=== PATIENT | male | born 1950 | race African-American/Black ===

== ENCOUNTER → 2017-01-07 | Outpatient (CLI) | payer OTHER ==
--- NOTE | 2017-01-07 12:37 | RAD ---
Left knee, 2 views, 01/07/2017: History: Knee pain No acute fracture or dislocation is identified. The knee joint space is well-preserved. A small lucency in the intercondylar region of the distal femur probably represents a degenerative type cyst. No joint effusion is evident. IMPRESSION: No acute left knee abnormality is detected.
== END | disposition home or self-care (01) ==
LOC: DXRAD 11:40
PROVIDERS: ATTEND Nurse Practitioner Family
DX: M25.562 Pain in left knee (principal)
CPT/HCPCS: 73560

== ENCOUNTER 2019-06-20 22:24 | Emergency (ER) | payer OTHER, MEDICARE ==
[~2019-06-20] VITALS: Ht 182.9 cm; Wt 95.7 kg
--- NOTE | 2019-06-20 22:47 | PHYS DOC ---
Past History Past Medical History: A-Fib, Hypertension Adult General Chief Complaint Chief Complaint: DYSPNEA/RESPIRATOY DISTRESS... ".. I ve been short of breath.. the past week or so... I probably pick something up at work as her body there is sick... But I just notice I been kind of wheezy..." HPI HPI Patient is a 68 year old male who presents with above hx and complaints of increased dyspnea. Patient history of hypertension and A. fib. Patient states his dyspnea is not like when he had excessive hypertension or A. fib. Patient does have exposures at work to metal dust. 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 Patient normally follows for Dr. Kidd. And also [facility] cardiology for his past history of hypertension and A. fib. Patient has had requirement of use of albuterol inhaler in the past with bronchitis. Patient does not smoke. No history of DVTs or pulmonary embolisms with him or family members. No recent travel. Post multiple or partners have a viral and respiratory illnesses. Review of Systems Review of Systems Constitutional: Denies fever or chills [] Eyes: Denies change in visual acuity, redness, or eye pain [] HENT: Denies nasal congestion or sore throat [] Respiratory: History of [id number], wheezing and dyspnea] Cardiovascular: No additional information not addressed in HPI [] GI: Denies abdominal pain, nausea, vomiting, bloody stools or diarrhea [] : Denies dysuria or hematuria [] Musculoskeletal: Denies back pain or joint pain [] Integument: Denies rash or skin lesions [] Neurologic: Denies headache, focal weakness or sensory changes [] Endocrine: Denies polyuria or polydipsia [] All other systems were reviewed and found to be within normal limits, except as documented in this note. Family History Family History Noncontributory Current Medications Current Medications See nursing for home medications Allergies Allergies Allergies Coded Allergies Type Severity Reaction Last Updated Verified No Known Drug Allergies 06/20/19 No Physical Exam Physical Exam Constitutional: Well developed, well nourished, no acute distress, non-toxic appearance. [] HENT: Normocephalic, atraumatic, bilateral external ears normal, oropharynx moist, no oral exudates, nose mild turbinate edema and clear rhinorrhea. Eyes: PERRLA, EOMI, conjunctiva normal, no discharge. [] Neck: Normal range of motion, no tenderness, supple, no stridor. [] Cardiovascular:Heart rate regular rhythm, no murmur [] Lungs & Thorax: Bilateral breath sounds with apex with scattered wheezes on auscultation [] Abdomen: Bowel sounds normal, soft, no tenderness, no masses, no pulsatile masses. [] Skin: Warm, dry, no erythema, no rash. [] Back: No tenderness, no CVA tenderness. [] Extremities: No tenderness, no cyanosis, no clubbing, ROM intact, no edema. [No cording noted in legs.] Neurologic: Alert and oriented X 3, normal motor function, normal sensory function, no focal deficits noted. [] Psychologic: Affect normal, judgement normal, mood normal. [] EKG EKG My interpretation EKG shows a sinus rhythm at 77 beats per minute. No findings acute STEMI with contralateral changes.[] Radiology/Procedures Radiology/Procedures [][place] [address] IMAGING REPORT Signed PATIENT: JAILYN VELAZQUEZ DACCOUNT: [id number] : 1950 LOCATION: ER AGE: 68 SEX: M EXAM STATUS: REG ER ORD. PHYSICIAN: PETER HADDAD MD REASON: dyspnea, WHEEZING - X 1 WEEK PROCEDURE: CHEST PA & LATERAL CHEST PA LATERAL History: Dyspnea and wheezing for one week Comparison: 12/09/2011 Portable Chest X-ray Exam. Findings: Frontal and lateral view of chest were obtained. The cardiomediastinal silhouette is normal. Pulmonary vasculature is normal. The lungs are clear. No pleural effusion or pneumothorax is seen. There is no acute bone abnormality. IMPRESSION: No acute cardiopulmonary process. Electronically signed by: Jeff Baumann MD (06/20/2019 11:21 PM) [facility] DICTATED AND SIGNED BY: JEFF BAUMANN MD DATE: 06/20/19 0385 CC: PETER HADDAD MD; MONUIKA KIDD ~ Course & Med Decision Making Course & Med Decision Making Pertinent Labs and Imaging studies reviewed. (See chart for details) Patient reports relief of symptoms with albuterol treatments. Patient requesting discharge. Patient to take prednisone 50 mg a day. Patient to use MDI 2 puffs 4 times a day. Follow-up primary care. Return if any concerns. Impression: 1. Reactive airway 2. Viral syndrome [] Dragon Disclaimer Dragon Disclaimer This electronic medical record was generated, in whole or in part, using a voice recognition dictation system. Departure Departure: Disposition: 01 HOME/RESIDENCE PRIOR TO ADM Condition: STABLE Referrals: MOUNIKA KIDD (PCP) Scripts Prednisone (PREDNISONE) 50 Mg Tablet 50 MG PO DAILY for reactive airway for 5 Days, #5 TAB Prov: PETER HADDAD MD 06/21/19 Caitlin Disclaimer This chart was dictated in whole or in part using Voice Recognition software in a busy, high-work load, and often noisy Emergency Department environment. It may contain unintended and wholly unrecognized errors or omissions. PETER HADDAD MD Jun 20, 2019 22:47
[2019-06-20] MEDS ORDERED: IV RINGERS SOLUTION,LACTATED 1,000 ML IV SCH (23:15)
[2019-06-20] MEDS ORDERED: ASPIRIN 81 MG TAB.CHEW PO ONE (23:15)
[2019-06-20] MEDS ORDERED: ALBUTEROL SULFATE 8GM INHALER. INH ONE (23:15)
[2019-06-20] MEDS ORDERED: IPRATRPIUM/ALBUTEROL 0.5/2.5MG 3 ML NEBU. NEB ONE (23:15)
[2019-06-20] MEDS ORDERED: methylPREDNISolone SOD SUCC PF 125 MG/2 ML VIAL. IV ONE (23:15)
--- NOTE | 2019-06-20 23:24 | RAD ---
CHEST PA LATERAL History: Dyspnea and wheezing for one week Comparison: 12/09/2011 Portable Chest X-ray Exam. Findings: Frontal and lateral view of chest were obtained. The cardiomediastinal silhouette is normal. Pulmonary vasculature is normal. The lungs are clear. No pleural effusion or pneumothorax is seen. There is no acute bone abnormality. IMPRESSION: No acute cardiopulmonary process. Electronically signed by: Jeff Avendano MD (06/20/2019 11:21 PM) [facility] [place]
[2019-06-21 00:08] LABS: BASO % 1 % (0-3); EOS # 0.4 x10^3/uL (0.0-0.7); EOS % 7 % (0-3); HEMATOCRIT 44.2 % (39.0-53.0); HEMOGLOBIN 14.7 g/dL (13.0-17.5); LYMPH # 1.2 x10^3/uL (1.0-4.8); LYMPH % 21 % (24-48); MEAN CORPUSCULAR HEMOGLOBIN 30 pg (25-35); MEAN CORPUSCULAR HGB CONC 33 g/dL (31-37); MEAN CORPUSCULAR VOLUME 90 fL (79-100); MONO # 0.7 x10^3/uL (0.0-1.1); MONO % 11 % (0-9); NEUT # 3.6 x10^3uL (1.8-7.7); NEUT % 60 % (31-73); PLATELET COUNT 206 x10^3/uL (140-400); RED CELL DISTRIBUTION WIDTH 14.2 % (11.5-14.5)
[2019-06-21 00:25] LABS: CALCIUM 8.4 mg/dL (8.5-10.1); CREATININE 1.3 mg/dL (0.7-1.3); DIRECT BILIRUBIN 0.1 mg/dL (0.0-0.2); GFR 66.8; MAGNESIUM 2.2 mg/dL (1.8-2.4); POTASSIUM 4.3 mmol/L (3.5-5.1); TOTAL BILIRUBIN 0.3 mg/dL (0.2-1.0); TOTAL PROTEIN 7.3 g/dL (6.4-8.2)
[2019-06-21 00:29] LABS: INFLUENZA A PATIENT NEGATIVE (NEGATIVE); INFLUENZA B PATIENT NEGATIVE (NEGATIVE)
[2019-06-21] MEDS ORDERED: PRED50TA PO (00:39)
[2019-06-21 00:55] VITALS: BP 150/81
--- NOTE | 2019-06-21 07:06 | EKG ---
[address] [address] Test Date: 2019-06-20 Test Time: 22:44:56 Pat Name: JAILYN VELAZQUEZ Department: Room: Gender: M [employer] Department Chair: : 1950 Requested By: PETER HADDAD Order Number: [id number] Reading MD: Measurements Intervals [place] Rate: 77 P: 44 [place]: 156 QRS: 43 QRSD: 74 T: 16 QT: 368 QTc: 418 Interpretive Statements SINUS RHYTHM NO SPECIFIC ECG ABNORMALITIES RI6.01 No previous ECG available for comparison
[2019-06-21 11:18] LABS: THYROID STIM HORMONE (TSH) 4.036 uIU/mL (0.358-3.740)
== END 2019-06-21 01:00 | disposition home or self-care (01) ==
LOC: ER 22:24
DX: J45.909 Unspecified asthma, uncomplicated (principal); B34.9 Viral infection, unspecified; I48.91 Unspecified atrial fibrillation; I10 Essential (primary) hypertension
CPT/HCPCS: 36415; 71046; 80048; 80061; 80076; 82550; 83605; 83735; 83880; 84443; 84484; 85025; 85379; 85610; 85730; 87040; 87804; 93005; 94640; 96374; 99285; J2930; J7120; J7613; J7620; 94664

== ENCOUNTER → 2019-08-20 | Outpatient (CLI) | payer OTHER ==
[~2019-08-20] MED LIST: PRED50TA PO
--- NOTE | 2019-08-20 15:46 | RAD ---
3 views of each shoulder without comparison for shoulder pain. FINDINGS: There is no fracture, dislocation, or acute osseous abnormality. On the right, there is minimal narrowing of the glenohumeral joint. Several lucencies and some patchy sclerosis is seen at the greater tuberosity near the insertion of the rotator cuff, likely due to chronic inflammation in this region. Similar findings are seen on the left though to a lesser degree. IMPRESSION: 1. No acute osseous abnormality. 2. Degenerative changes involving the humeri near the greater tuberosities, possibly due to chronic inflammation of the rotator cuff insertion. Electronically signed by: Casey Aggarwal MD (08/20/2019 3:44 PM) [id number]
== END | disposition home or self-care (01) ==
LOC: PMG 15:17
PROVIDERS: ATTEND Physician Assistant
DX: M19.011 Primary osteoarthritis, right shoulder (principal); M19.012 Primary osteoarthritis, left shoulder
CPT/HCPCS: 73030

== ENCOUNTER 2020-08-19 05:15 | Emergency (ER) | payer MEDICARE, OTHER ==
[~2020-08-19] VITALS: Ht 182.9 cm; Wt 92.7 kg
[2020-08-19 05:20] VITALS: BP 158/86
--- NOTE | 2020-08-19 05:38 | PHYS DOC ---
Past History Past Medical History: A-Fib, Hypertension (KARTHIKEYAN VASQUEZ MD) Past Surgical History: No Surgical History (KARTHIKEYAN VASQUEZ MD) Alcohol Use: None Drug Use: None (KARTHIKEYAN VASQUEZ MD) Adult General Chief Complaint Chief Complaint: NAUSEA/VOMITING/DIARRHEA HPI HPI Patient is a 69-year-old male with a past medical history of hypertension and hypercholesterolemia who presents to the emergency department with a chief com plaint of approximately 5 hours of nausea vomiting and diarrhea. States he was doing well yesterday and ate a bunch of chicken wings from the gas station at [place] just before going to bed. States he woke up a little bit ago with nausea, vomiting and watery diarrhea. Denies any blood in either. Denies headache, chest pain, shortness of breath, dysuria, hematuria. Denies any r ecent travel, illnesses, known ill contacts, fevers, rash. Denies any alcohol or drug use. (KARTHIKEYAN VASQUEZ MD) Review of Systems Review of Systems Review of systems otherwise unremarkable except noted in HPI (KARTHIKEYAN VASQUEZ MD) Allergies Allergies Allergies Coded Allergies Type Severity Reaction Last Updated Verified No Known Drug Allergies 06/20/19 No (KARTHIKEYAN VASQUEZ MD) Physical Exam Physical Exam Constitutional: Well developed, well nourished, no acute distress, non-toxic appearance. [] HENT: Normocephalic, atraumatic, oropharynx moist, no oral exudates, nose normal. [] Eyes: conjunctiva normal, no discharge. [] Neck: Normal range of motion, no tenderness, Cardiovascular: Tachycardia, no murmur] Lungs & Thorax: Bilateral breath sounds clear to auscultation [] Abdomen: Bowel sounds increase, soft, generalized tenderness, no masses, no pulsatile masses. [] Skin: Warm, dry, no erythema, no rash. [] Back: No tenderness, no CVA tenderness. [] Extremities: No tenderness, no cyanosis, no clubbing, ROM intact, no edema. [] Neurologic: Alert and oriented X 3, normal motor function, normal sensory function, no focal deficits noted. [] Psychologic: Affect normal, judgement normal, mood normal. [] (KARTHIKEYAN VASQUEZ MD) EKG EKG [] (KARTHIKEYAN VASQUEZ MD) Radiology/Procedures Radiology/Procedures [] (KARTHIKEYAN VASQUEZ MD) Heart Score Risk Factors: Risk Factors: DM, Current or recent (<one month) smoker, HTN, HLP, family history of CAD, obesity. Risk Scores: Risk Factors: DM, Current or recent (<one month) smoker, HTN, HLP, family history of CAD, obesity. (KARTHIKEYAN VASQUEZ MD) Course & Med Decision Making Course & Med Decision Making Patient is a 69-year-old male who presents with approximately 5 to 6 hours of abdominal cramping associated with nausea, vomiting and watery diarrhea Vital signs notable for tachycardia and hypertension. Physical exam noted above. Patient placed on the monitor with IV access established. Started on IV fluid resuscitation and given antiemetics. [] (KARTHIKEYAN VASQUEZ MD) Course & Med Decision Making Labs unremarkable, patient tolerating p.o. after antiemetics. Patient states he does feel he can urinate to give a UA sample. But he denies any urinary tract symptoms. Patient wanting to go home. (MIGUELITO DELANEY MD) Dragon Disclaimer Dragon Disclaimer This electronic medical record was generated, in whole or in part, using a voice recognition dictation system. (KARTHIKEYAN VASQUEZ MD) Departure Departure: Impression: Primary Impression: Nausea & vomiting Additional Impressions: Diarrhea Abdominal cramps Disposition: 01 DC HOME SELF CARE/HOMELESS Condition: STABLE Referrals: MOUNIKA KIDD (PCP) Patient Instructions: Nausea and Vomiting Scripts Ondansetron (ONDANSETRON ODT) 4 Mg Tab.rapdis 1 TAB PO PRN Q6-8HRS PRN for NAUSEA for 3 Days, #10 TAB Prov: MIGUELITO DELANEY MD 08/19/20 Problem Qualifiers KARTHIKEYAN VASQUEZ MD Aug 19, 2020 05:38 MIGUELITO DELANEY MD Aug 19, 2020 07:52
[2020-08-19 05:51] LABS: BASO % 0 % (0-3); EOS # 0.1 x10^3/uL (0.0-0.7); EOS % 1 % (0-3); HEMATOCRIT 46.8 % (39.0-53.0); HEMOGLOBIN 15.3 g/dL (13.0-17.5); LYMPH # 0.5 x10^3/uL (1.0-4.8); LYMPH % 4 % (24-48); MEAN CORPUSCULAR HEMOGLOBIN 29 pg (25-35); MEAN CORPUSCULAR HGB CONC 33 g/dL (31-37); MEAN CORPUSCULAR VOLUME 89 fL (79-100); MONO # 0.5 x10^3/uL (0.0-1.1); MONO % 5 % (0-9); NEUT % 90 % (31-73); PLATELET COUNT 220 x10^3/uL (140-400); RED BLOOD COUNT 5.24 x10^6/uL (4.30-5.70); WHITE BLOOD COUNT 11.1 x10^3/uL (4.0-11.0)
[2020-08-19 05:58] LABS: CREATININE 1.3 mg/dL (0.7-1.3); GFR 66.6; POTASSIUM 4.4 mmol/L (3.5-5.1)
[2020-08-19] MEDS ORDERED: IV RINGERS SOLUTION,LACTATED 1,000 ML IV ONE (06:00)
[2020-08-19] MEDS ORDERED: METOCLOPRAMIDE HCL 10 MG/2 ML VIAL. IVP ONE (06:00)
[2020-08-19] MEDS ORDERED: ONDANSETRON PF 4 MG/2 ML VIAL. IVP ONE (06:00)
[2020-08-19 06:12] LABS: ALBUMIN/GLOBULIN RATIO 1.1 (1.0-1.7); TOTAL BILIRUBIN 0.5 mg/dL (0.2-1.0); TOTAL PROTEIN 7.7 g/dL (6.4-8.2)
--- NOTE | 2020-08-19 06:12 | EKG ---
[facility] ED [facility] [address] [place] [id number] Test Date: 2020-08-19 Test Time: 05:51:59 Pat Name: JAILYN VELAZQUEZ Department: Room: Gender: M [employer] Model: : 1950 Requested By: KARTHIKEYAN VASQUEZ Order Number: [id number] Reading MD: Migue Barton Measurements Intervals [place] Rate: 78 P: 43 [place]: 162 QRS: 34 QRSD: 76 T: 10 QT: 372 QTc: 428 Interpretive Statements SINUS RHYTHM Electronically Signed On 08-19-2020 8:09:50 [employer]EARCH SUPPORT SPECIALIST by Migue Barton
[2020-08-19] MEDS ORDERED: ONDA4TAB12 PO (07:51)
== END 2020-08-19 08:14 | disposition home or self-care (01) ==
LOC: ER 05:15
DX: R11.2 Nausea with vomiting, unspecified (principal); R19.7 Diarrhea, unspecified; R10.9 Unspecified abdominal pain; I10 Essential (primary) hypertension; I48.91 Unspecified atrial fibrillation
CPT/HCPCS: 36415; 80053; 83690; 84484; 85025; 93005; 96361; 96374; 96375; 99284; J2405; J2765; J7120; 96365

== ENCOUNTER 2021-02-12 09:52 | Emergency (ER) | payer MEDICARE ==
[~2021-02-12] VITALS: Ht 182.9 cm; Wt 93.4 kg
[~2021-02-12 09:52] MED LIST changes: +ONDA4TAB12 PO
[2021-02-12 10:27] VITALS: BP 168/87
[2021-02-12 10:45] LABS: BASO # 0.1 x10^3/uL (0.0-0.2); BASO % 1 % (0-3); EOS # 0.1 x10^3/uL (0.0-0.7); EOS % 1 % (0-3); HEMATOCRIT 44.2 % (39.0-53.0); LYMPH # 1.8 x10^3/uL (1.0-4.8); LYMPH % 23 % (24-48); MEAN CORPUSCULAR HEMOGLOBIN 30 pg (25-35); MEAN CORPUSCULAR HGB CONC 34 g/dL (31-37); MEAN CORPUSCULAR VOLUME 90 fL (79-100); MONO # 0.6 x10^3/uL (0.0-1.1); MONO % 7 % (0-9); NEUT # 5.2 x10^3uL (1.8-7.7); NEUT % 67 % (31-73); PLATELET COUNT 236 x10^3/uL (140-400); RED BLOOD COUNT 4.93 x10^6/uL (4.30-5.70); WHITE BLOOD COUNT 7.7 x10^3/uL (4.0-11.0)
[2021-02-12 10:53] LABS: POTASSIUM ISTAT 4.4 mmol/L (3.5-5.0)
[2021-02-12] MEDS ORDERED: IV NORMAL SALINE 1,000ML 1,000 ML IV ONE (11:00)
--- NOTE | 2021-02-12 11:45 | RAD ---
CT head without contrast dated 02/12/2021 11:42 AM Comparison: None CLINICAL INDICATION: Dizziness and confusion. Headaches. TECHNIQUE: Contiguous axial imaging of the head was performed from skull base to vertex. One or more of the following individualized dose reduction techniques were utilized for this examinat ion: 1. Automated exposure control 2. Adjustment of the mA and/or kV according to patient size 3. Use of iterative reconstruction technique. FINDINGS: Ventricles and sulci are mildly prominent for age. No midline shift or mass effect. Mild patchy low d ensity in the deep/subcortical periventricular white matter. No hemorrhage or extra-axial collection. Posterior fossa and brainstem unremarkable. Visualized paranasal sinuses and mastoid air cells are clear. No apparent calvarial abnormality. IMPRESSION: 1. No evidence of acute intracranial hemorrhage or mass. 2. Mild chronic small vessel ischemic changes and atrophy. Electronically signed by: Lorne Bright MD (02/12/2021 11:43 AM) [id number]
--- NOTE | 2021-02-12 12:01 | PHYS DOC ---
Past History Past Medical History: A-Fib, High Cholesterol, Hypertension Additional Past Medical Histor: HLD Past Surgical History: No Surgical History Alcohol Use: None Drug Use: None General Adult EDM: Chief Complaint: MULTIPLE COMPLAINTS HPI: HPI: Patient is a 70-year-old male with past medical history hypertension hyperlipidemia presents with a chief complaint of dizziness and fatigue. Patient states he has felt fatigued for the last several days. Yesterday started to feel dizziness. Last night he states he could not sleep and this morning he woke up with difficulty opening his eyes described as a heaviness of his eyelids. Patient denied any associated headache nausea vomiting blurry vision chest pain or extremity weakness. On exam patient has an NIH stroke scale of 0. History obtained from the patient. He arrived by private vehicle and ambulated into the ER. Review of Systems: Review of Systems: Review of systems: Constitutional symptoms- No fever, no chills. Eyes- No Discharge, No Visual Loss Respiratory symptoms- No shortness of breath, No wheezing, No Dyspnea on Exertion Cardiovascular Systems; No chest pain, No Palpitations, No syncope Gastrointestinal symptoms: NO abdominal pain, no nausea, no vomiting or diarrhea. Genitourinary symptoms: No dysuria. Musculoskeletal symptoms: No back pain No extremity pain. NEUROLOGICAL Symptoms: No headache, Positive generalized weakness; No focal Weakness positive dizziness Skin: No rash. Current Medications: Current Meds: Current Medications Medications (Trade) Dose Ordered Sig/[facility] Start Time Stop Time Status Last Admin Dose Admin Sodium Chloride 1,000 ml @ 1,000 mls/hr 1X ONCE 02/12/21 11:00 02/12/21 11:59 02/12/21 11:25 1,000 MLS/HR Allergies: Allergies: Allergies Coded Allergies Type Severity Reaction Last Updated Verified No Known Drug Allergies 06/20/19 No Physical Exam: PE: Constitutional: Well developed, well nourished, no acute distress, non-toxic appearance. [] HENT: Normocephalic, atraumatic, bilateral external ears normal, oropharynx moist, no oral exudates, nose normal. [] Eyes: PERRLA, EOMI, conjunctiva normal, no discharge. [] Neck: Normal range of motion, no tenderness, supple, no stridor. [] Cardiovascular:Heart rate regular rhythm, no murmur [] Lungs & Thorax: Bilateral breath sounds clear to auscultation [] Abdomen: Bowel sounds normal, soft, no tenderness, no masses, no pulsatile masses. [] Skin: Warm, dry, no erythema, no rash. [] Back: No tenderness, no CVA tenderness. [] Extremities: No tenderness, no cyanosis, no clubbing, ROM intact, no edema. [] Neurologic: Alert and oriented X 3, normal motor function, normal sensory function, no focal deficits noted. [] Psychologic: Affect normal, judgement normal, mood normal. [] Current Patient Data: Labs: Laboratory Tests Test 02/12/21 10:23 White Blood Count 7.7 x10^3/uL (4.0-11.0) Red Blood Count 4.93 x10^6/uL (4.30-5.70) Hemoglobin 15.0 g/dL (13.0-17.5) POC Hemoglobin 16 gm/dL Hematocrit 44.2 % (39.0-53.0) POC Hematocrit 47 % Mean Corpuscular Volume 90 fL (79-100) Mean Corpuscular Hemoglobin 30 pg (25-35) Mean Corpuscular Hemoglobin Concent 34 g/dL (31-37) Red Cell Distribution Width 14.0 % (11.5-14.5) Platelet Count 236 x10^3/uL (140-400) Neutrophils (%) (Auto) 67 % (31-73) Lymphocytes (%) (Auto) 23 % (24-48) L Monocytes (%) (Auto) 7 % (0-9) Eosinophils (%) (Auto) 1 % (0-3) Basophils (%) (Auto) 1 % (0-3) Neutrophils # (Auto) 5.2 x10^3uL (1.8-7.7) Lymphocytes # (Auto) 1.8 x10^3/uL (1.0-4.8) Monocytes # (Auto) 0.6 x10^3/uL (0.0-1.1) Eosinophils # (Auto) 0.1 x10^3/uL (0.0-0.7) Basophils # (Auto) 0.1 x10^3/uL (0.0-0.2) POC Sodium 137 mmol/L (135-145) POC Potassium 4.4 mmol/L (3.5-5.0) POC Chloride 101 mmol/L (98-110) POC Total CO2 23 mmol/L (23-32) Anion Gap 19 mmol/L (6-14) H POC Blood Urea Nitrogen 21 mg/dL (8-26) POC Creatinine 1.4 mg/dL (0.5-1.4) Glucose Level 107 mg/dL (60-99) H POC Ionized Calcium ([place]) 1.25 mmol/L (1.13-1.32) POC Troponin I 0.00 ng/ml (<0.08) Vital Signs: Vital Signs Date Time Temp Pulse Resp B/P (MAP) Pulse Ox O2 Delivery O2 Flow Rate FiO2 02/12/21 10:27 98.6 73 20 168/87 99 Room Air EKG: EKG: [] Radiology/Procedures: Radiology/Procedures: [] Impressions: Comparison: None CLINICAL INDICATION: Dizziness and confusion. Headaches. TECHNIQUE: Contiguous axial imaging of the head was performed from skull base to vertex. One or more of the following individualized dose reduction techniques were utilized for this examination: 1. Automated exposure control 2. Adjustment of the mA and/or kV according to patient size 3. Use of iterative reconstruction technique. FINDINGS: Ventricles and sulci are mildly prominent for age. No midline shift or mass effect. Mild patchy low density in the deep/subcortical periventricular white matter. No hemorrhage or extra-axial collection. Posterior fossa and brainstem unremarkable. Visualized paranasal sinuses and mastoid air cells are clear. No apparent calvarial abnormality. IMPRESSION: 1. No evidence of acute intracranial hemorrhage or mass. 2. Mild chronic small vessel ischemic changes and atrophy. Heart Score: C/O Chest Pain: N/A Risk Factors: Risk Factors: DM, Current or recent (<one month) smoker, HTN, HLP, family history of CAD, obesity. Risk Scores: Score 0 - 3: 2.5% MACE over next 6 weeks - Discharge Home Score 4 - 6: 20.3% MACE over next 6 weeks - Admit for Clinical Observation Score 7 - 10: 72.7% MACE over next 6 weeks - Early Invasive Strategies Course & Med Decision Making: Course & Med Decision Making Pertinent Labs and Imaging studies reviewed. (See chart for details) [] Dragon Disclaimer: Dragon Disclaimer: This electronic medical record was generated, in whole or in part, using a voice recognition dictation system. NIH Stroke Scale: NIH Stroke Scale Response (Comments) Value Level of Consciousness: 0 Alert/Responsive 0 LOC Questions: 0 Answers both correctly 0 LOC Commands: 0 Performs both tasks 0 Best Gaze: 0 Normal 0 Visual: 0 No visual loss 0 Facial Palsy: 0 Normal, symmetrical 0 Motor - Left Arm 0 No drift 0 Motor - Right Arm 0 No drift 0 Motor - Left Leg 0 No drift 0 Motor: Right Leg 0 No drift 0 Limb Ataxia: 0 Absent 0 Sensory: 0 No loss 0 Best Language: 0 Normal 0 Dysathria: 0 Normal 0 Extinction and Inattention: 0 Normal 0 Total 0 Departure Departure: Impression: Primary Impression: Dizziness Additional Impressions: Fatigue Dehydration Disposition: 01 HOME / SELF CARE / HOMELESS Condition: STABLE Referrals: MOUNIKA KIDD (PCP) Patient Instructions: Dehydration, Adult, Dizziness, Fatigue ESPERANZA ISLAS I DO Feb 12, 2021 12:01
[2021-02-12 12:27] LABS: ALBUMIN 4.2 g/dL (3.4-5.0); ALBUMIN/GLOBULIN RATIO 1.3 (1.0-1.7); CALCIUM 8.7 mg/dL (8.5-10.1); CREATININE 1.4 mg/dL (0.7-1.3); POTASSIUM 4.5 mmol/L (3.5-5.1); TOTAL BILIRUBIN 0.6 mg/dL (0.2-1.0); TOTAL PROTEIN 7.4 g/dL (6.4-8.2)
--- NOTE | 2021-02-12 13:10 | EKG ---
[address] [address] Test Date: 2021-02-12 Test Time: 12:09:55 Pat Name: JAILYN VELAZQUEZ Department: Room: Gender: M Supervisor [employer]: LEONARDO : 1950 Requested By: ESPERANZA ISLAS Order Number: [id number] Reading MD: Measurements Intervals [place] Rate: 64 P: 44 [place]: 180 QRS: 54 QRSD: 78 T: 27 QT: 380 QTc: 396 Interpretive Statements SINUS RHYTHM OTHERWISE NORMAL ECG RI6.02 No previous ECG available for comparison
[2021-02-12 15:25] LABS: FREE T4 0.99 ng/dL (0.76-1.46); THYROID STIM HORMONE (TSH) 2.205 uIU/mL (0.358-3.740)
== END 2021-02-12 13:07 | disposition home or self-care (01) ==
LOC: ER 09:52
DX: E86.0 Dehydration (principal); R42 Dizziness and giddiness; R53.83 Other fatigue; E78.5 Hyperlipidemia, unspecified; I10 Essential (primary) hypertension; I48.91 Unspecified atrial fibrillation
CPT/HCPCS: 36415; 70450; 80047; 80053; 84439; 84443; 84480; 84484; 85025; 93005; 96360; 99285; J7030

== ENCOUNTER 2021-03-24 08:00 | Emergency (ER) | payer MEDICARE ==
[~2021-03-24] VITALS: Ht 182.9 cm; Wt 92.8 kg
--- NOTE | 2021-03-24 09:27 | PHYS DOC ---
Past History Past Medical History: A-Fib, High Cholesterol, Hypertension Additional Past Medical Histor: HLD; prostate issues Past Surgical History: No Surgical History Alcohol Use: None Drug Use: None General Adult EDM: Chief Complaint: MULTIPLE COMPLAINTS HPI: HPI: Patient is a 70 year old male who presents with what he believes is now resolved panic attack. 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 Yesterday evening at 6 PM he was working when he began to feel quite anxious. He experienced palpitations/heart racing. He had a couple minutes of very slight chest discomfort for the first few minutes of symptoms which quickly resolved. The palpitations also quickly resolved. He the feeling of anxiety continued through the evening and he had a difficult time sleeping. He checked his pulse oximeter and heart rate at home and they were normal with a heart rate in the 80s and pulse ox in the high 90s. This morning after a poor night of sleep, and does have some mild nausea. Unrelated, he also complains of some swelling around his right elbow that has been present for a few days. No trauma. No overlying skin changes. Is not painful. Review of Systems: Review of Systems: Constitutional: Denies fever or chills Eyes: Denies change in visual acuity HENT: Denies nasal congestion or sore throat Respiratory: Denies cough or shortness of breath Cardiovascular: Brief, now-resolved, chest discomfort. Now resolved palpitations. No edema GI: + mild nausea. Denies abdominal pain, vomiting, bloody stools or diarrhea : Denies dysuria Musculoskeletal: Denies back pain or joint pain. + Swelling over R elbow. Integument: Denies rash Neurologic: Denies headache, focal weakness or sensory changes Endocrine: Denies polyuria or polydipsia Lymphatic: Denies swollen glands Psychiatric: Denies depression. Reports anxiety. Allergies: Allergies: Allergies Coded Allergies Type Severity Reaction Last Updated Verified No Known Drug Allergies 03/24/21 No Physical Exam: PE: Constitutional: Well developed, well nourished, no acute distress, non-toxic appearance. [] HENT: Normocephalic, atraumatic, bilateral external ears normal, oropharynx moist, no oral exudates, nose normal. [] Eyes: PERRLA, EOMI, conjunctiva normal, no discharge. [] Neck: Normal range of motion, no tenderness, supple, no stridor. [] Cardiovascular:Heart rate regular rhythm, no murmur [] Lungs & Thorax: Bilateral breath sounds clear to auscultation [] Abdomen: Bowel sounds normal, soft, no tenderness, no masses, no pulsatile masses. [] Skin: Warm, dry, no erythema, no rash. [] Extremities: Right elbow with small fluctuant area over the olecrannon. no overlying erythema or warmth. Non-tender. No drainage. Full painless ROM of elbow. [] Neurologic: Alert and oriented X 3, normal motor function, normal sensory function, no focal deficits noted. [] Psychologic: anxious mood and congruent affect. no si/hi. [] Current Patient Data: Vital Signs: Vital Signs Date Time Temp Pulse Resp B/P (MAP) Pulse Ox O2 Delivery O2 Flow Rate FiO2 03/24/21 08:37 66 12 147/76 (99) 100 Room Air 03/24/21 08:05 98.2 EKG: EKG: Sinus rhythm. Rate 67. Normal intervals. QTc 400. Normal axis. No Q waves, T wave inversion, ST elevation or ST depression. Normal EKG. No ischemic changes. [] Radiology/Procedures: Radiology/Procedures: [id number] ultrasound identified a well-circumscribed fluid collection overlying the right elbow/olecranon. No evidence of joint effusion. No evidence of soft tissue thickening or cobblestoning. [] Impressions: [place] [id number] IMAGING REPORT Signed PATIENT: JAILYN VELAZQUEZ DACCOUNT: [id number] : 1950 LOCATION: ER AGE: 70 SEX: M EXAM STATUS: REG ER ORD. PHYSICIAN: DOUGLAS GALAVIZ MD REASON: palpitations, anxiety, chest discomfort. PROCEDURE: CHEST AP ONLY XR CHEST 1V History: Palpitations, anxiety, chest discomfort. Comparison: 06/20/2019. Technique: AP radiograph of the chest. Findings: The lungs are adequately and symmetrically inflated. No airspace consolidation, pleural effusion or pneumothorax. The cardiomediastinal silhouette and pulmonary vasculature are within normal limits. No acute osseous abnormality. Soft tissues are unremarkable. Impression: 1. No acute cardiopulmonary process. Electronically signed by: Charles Watson MD (03/24/2021 10:05 AM) [id number] DICTATED AND SIGNED BY: CHARLES WATSON MD DATE: 03/24/21 1004 CC: DOUGLAS GALAVIZ MD; BERNABEMOUNIKA PA ~MTH0 0 Heart Score: C/O Chest Pain: Yes HEART Score for Chest Pain: HEART Score for Chest Pain Response (Comments) Value History Slighlty/Non-Suspicious 0 ECG Normal 0 Age > 65 2 Risk Factors 1 or 2 Risk Factors 1 Troponin < Normal Limit 0 Total 3 Risk Factors: Risk Factors: DM, Current or recent (<one month) smoker, HTN, HLP, family history of CAD, obesity. Risk Scores: Score 0 - 3: 2.5% MACE over next 6 weeks - Discharge Home Score 4 - 6: 20.3% MACE over next 6 weeks - Admit for Clinical Observation Score 7 - 10: 72.7% MACE over next 6 weeks - Early Invasive Strategies Course & Med Decision Making: Course & Med Decision Making Pertinent Labs and Imaging studies reviewed. (See chart for details) Patient is 70-year-old male with history of A. fib, HLD, HTN who presents the day after what he was concerned was a panic attack associated with palpitations, anxiety, and very brief chest discomfort. On arrival is afebrile, hemodynamically stable. EKG sinus rhythm with no ischemic changes. Aside from some mild nausea is currently asymptomatic. He is very anxious about harvesting a large piece of land, feel this may be contributing to an anxiety attack. There is also a possibility that he had an episode of recurrent afib, but is fortunately in a sinus rhythm now. We will check a troponin to exclude NSTEMI given his brief period of chest discomfort. Heart score is 3. If negative feel he should be safe for outpatient cardiology follow-up. 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 We will check labs to ensure no anemia or electrolyte disturbance. Low suspicion for PE, aortic dissection, or other dangerous causes of chest discomfort. Regarding his swollen elbow, it does appear to be a swollen olecranon bursa that does not appear to be inflamed or infected. It is not causing any pain or symptoms. I explained what this was and the expectant management with rest and NSAIDs as needed. [id number] Caitlin Disclaimer: Caitlin Disclaimer: This electronic medical record was generated, in whole or in part, using a voice recognition dictation system. Departure Departure: Impression: Primary Impression: Palpitations Additional Impressions: Chest discomfort Anxiety Bursal cyst of olecranon Disposition: HOME / SELF CARE / HOMELESS Condition: STABLE Referrals: MOUNIKA KIDD (PCP) Additional Instructions: Your work up was reassuring. Please follow up with your police records clerk as scheduled. If this recurs they may want to set you up with a heart monitor to ensure this was not recurrent atrial fibrillation. Please also consider following up with your primary care doctor to discuss anxiety and potential treatment. If you develop recurrent/worsening symptoms you can return to the emergency department for reevaluation. DOUGLAS GALAVIZ MD Mar 24, 2021 09:27
[2021-03-24 09:32] LABS: BASO % 0 % (0-3); EOS # 0.1 x10^3/uL (0.0-0.7); EOS % 1 % (0-3); HEMATOCRIT 40.4 % (39.0-53.0); HEMOGLOBIN 13.6 g/dL (13.0-17.5); LYMPH # 1.2 x10^3/uL (1.0-4.8); LYMPH % 16 % (24-48); MEAN CORPUSCULAR HEMOGLOBIN 30 pg (25-35); MEAN CORPUSCULAR HGB CONC 34 g/dL (31-37); MEAN CORPUSCULAR VOLUME 90 fL (79-100); MONO # 0.5 x10^3/uL (0.0-1.1); MONO % 7 % (0-9); NEUT # 5.5 x10^3uL (1.8-7.7); NEUT % 75 % (31-73); PLATELET COUNT 211 x10^3/uL (140-400); RED BLOOD COUNT 4.49 x10^6/uL (4.30-5.70); RED CELL DISTRIBUTION WIDTH 14.1 % (11.5-14.5); WHITE BLOOD COUNT 7.4 x10^3/uL (4.0-11.0)
[2021-03-24 09:33] VITALS: BP 135/69
[2021-03-24 09:39] LABS: CALCIUM 8.8 mg/dL (8.5-10.1); CREATININE 1.2 mg/dL (0.7-1.3); GFR 72.9; POTASSIUM 3.7 mmol/L (3.5-5.1)
--- NOTE | 2021-03-24 10:07 | RAD ---
XR CHEST 1V History: Palpitations, anxiety, chest discomfort. Comparison: 06/20/2019. Technique: AP radiograph of the chest. Findings: The lungs are adequately and symmetrically inflated. No airspace consolidation, pleural effusion or p neumothorax. The cardiomediastinal silhouette and pulmonary vasculature are within normal limits. No acute osseous abnormality. Soft tissues are unremarkable. Impression: 1. No acute cardiopulmonary process. Electronically signed by: Charles Santos MD (03/24/2021 10:05 AM) [id number]
--- NOTE | 2021-03-24 10:22 | EKG ---
[address] [address] Test Date: 2021-03-24 Test Time: 08:24:57 Pat Name: JAILYN VELAZQUEZ Department: Room: Gender: M Shelf Stocker: LASHELL : 1950 Requested By: DOUGLAS GALAVIZ Order Number: [id number] Reading MD: Measurements Intervals [place] Rate: 67 P: 48 AK: 174 QRS: 39 QRSD: 78 T: 17 QT: 376 QTc: 400 Interpretive Statements SINUS RHYTHM OTHERWISE NORMAL ECG RI6.02 No previous ECG available for comparison
== END 2021-03-24 10:24 | disposition home or self-care (01) ==
LOC: ER 08:00
DX: R00.2 Palpitations (principal); R07.89 Other chest pain; F41.9 Anxiety disorder, unspecified; M71.38 Other bursal cyst, other site; I48.91 Unspecified atrial fibrillation; E78.00 Pure hypercholesterolemia, unspecified; I10 Essential (primary) hypertension; E78.5 Hyperlipidemia, unspecified
CPT/HCPCS: 36415; 71045; 80048; 84484; 85025; 93005; 99285

== ENCOUNTER 2021-09-12 09:09 | Emergency (ER) | payer MEDICARE ==
[~2021-09-12] VITALS: Ht 182.9 cm; Wt 98.0 kg
--- NOTE | 2021-09-12 09:54 | PHYS DOC ---
Past History Past Medical History: A-Fib, High Cholesterol, Hypertension Additional Past Medical Histor: HLD; prostate issues Past Surgical History: No Surgical History Alcohol Use: None Drug Use: None General Adult EDM: Chief Complaint: NAUSEA/VOMITING/DIARRHEA HPI: HPI: Patient is a 70-year-old male coming in for vomiting, abdominal pain, and loose stools. Patient states his symptoms started around 2 AM (about 7 hours prior to arrival). Patient states he is nonbloody nonbilious emesis 4 times, and 2 small loose stools. Patient states he has abdominal distention that was relieved with vomiting. Denies any fever or chills. Patient states he last ate a burrito at 1900 yesterday. No known sick contacts, no known raw or undercooked food, no recent travel or antibiotic use. Patient is a history of atrial fibrillation and is taking sotalol and Coreg, states he has not been in A. fib in years. Denies any history of abdominal surgeries. No known food allergies Review of Systems: Review of Systems: All other systems within normal limits except for as noted in the HPI Current Medications: Current Meds: Current Medications Medications (Trade) Dose Ordered Sig/Perla Start Time Stop Time Status Last Admin Dose Admin Fentanyl Citrate (Fentanyl 2ml Vial) 100 mcg STK-MED ONCE 09/12/21 09:49 09/12/21 09:50 DC Ondansetron HCl (Zofran) 4 mg 1X ONCE 09/12/21 10:00 09/12/21 10:01 Sodium Chloride 500 ml @ 0 mls/hr 1X ONCE 09/12/21 10:00 09/12/21 10:01 Allergies: Allergies: Allergies Coded Allergies Type Severity Reaction Last Updated Verified No Known Drug Allergies 09/12/21 No Physical Exam: PE: Constitutional: Well developed, well nourished, no acute distress, non-toxic appearance. [] HENT: Normocephalic, atraumatic, bilateral external ears normal, nose normal. [] Eyes: PERRLA, conjunctiva normal, no discharge. [] Neck: No rigidity, supple, no stridor. [] Cardiovascular: Regular rate and rhythm, brisk cap refill [] Lungs & Thorax: Non labored symmetric respirations, no tachypnea or respiratory distress [] Abdomen: Soft, mild distended, no point tenderness palpation Skin: Warm, dry, no erythema, no rash. [] Back: Unremarkable Extremities: No deformities, range of motion grossly intact, no lower extremity edema [] Neurologic: Alert and oriented X 3, no focal deficits noted. [] Psychologic: Affect normal, judgement normal, mood normal. [] Current Patient Data: Vital Signs: Vital Signs Date Time Temp Pulse Resp B/P (MAP) Pulse Ox O2 Delivery O2 Flow Rate FiO2 09/12/21 09:20 98.4 71 18 139/86 (103) 99 Room Air EKG: EKG: [] Radiology/Procedures: Radiology/Procedures: [] Heart Score: C/O Chest Pain: No Risk Factors: Risk Factors: DM, Current or recent (<one month) smoker, HTN, HLP, family history of CAD, obesity. Risk Scores: Score 0 - 3: 2.5% MACE over next 6 weeks - Discharge Home Score 4 - 6: 20.3% MACE over next 6 weeks - Admit for Clinical Observation Score 7 - 10: 72.7% MACE over next 6 weeks - Early Invasive Strategies Course & Med Decision Making: Course & Med Decision Making Pertinent Labs and Imaging studies reviewed. (See chart for details) Patient feeling better and tolerating p.o. Labs unremarkable. 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 Discussed return precautions [] Dragon Disclaimer: Caitlin Disclaimer: This electronic medical record was generated, in whole or in part, using a voice recognition dictation system. Departure Departure: Impression: Primary Impression: Nausea vomiting and diarrhea Disposition: HOME / SELF CARE / HOMELESS Condition: STABLE Referrals: PCP,NO (PCP) Patient Instructions: Nausea and Vomiting Scripts Dicyclomine Hcl (DICYCLOMINE HCL) 10 Mg Capsule 1 CAP PO PRN Q6HRS PRN for ABDOMINAL CRAMPS for 5 Days, #100 CAP 0 Refills Prov: MIGUELITO DELANEY MD 09/12/21 Ondansetron (ONDANSETRON ODT) 4 Mg Tab.rapdis 1 TAB PO PRN Q6-8HRS PRN for NAUSEA, #8 TAB Prov: MIGUELITO DELANEY MD 09/12/21 MIGUELITO DELANEY MD Sep 12, 2021 09:54
[2021-09-12 09:56] LABS: BASO % 0 % (0-3); EOS # 0.1 x10^3/uL (0.0-0.7); EOS % 1 % (0-3); HEMATOCRIT 42.2 % (39.0-53.0); HEMOGLOBIN 14.1 g/dL (13.0-17.5); LYMPH # 0.2 x10^3/uL (1.0-4.8); LYMPH % 3 % (24-48); MEAN CORPUSCULAR HEMOGLOBIN 30 pg (25-35); MEAN CORPUSCULAR HGB CONC 34 g/dL (31-37); MEAN CORPUSCULAR VOLUME 90 fL (79-100); MONO # 0.3 x10^3/uL (0.0-1.1); MONO % 3 % (0-9); NEUT % 93 % (31-73); PLATELET COUNT 210 x10^3/uL (140-400); RED BLOOD COUNT 4.68 x10^6/uL (4.30-5.70); RED CELL DISTRIBUTION WIDTH 13.8 % (11.5-14.5); WHITE BLOOD COUNT 8.7 x10^3/uL (4.0-11.0)
[2021-09-12 09:58] LABS: CALCIUM 8.7 mg/dL (8.5-10.1); CREATININE 1.1 mg/dL (0.7-1.3); GFR 80.5
[2021-09-12] MEDS ORDERED: ONDANSETRON PF 4 MG/2 ML VIAL. IVP ONE (10:00)
[2021-09-12] MEDS ORDERED: IV NORMAL SALINE 500ML 500 ML IV ONE (10:00)
[2021-09-12 10:04] LABS: ALBUMIN 3.8 g/dL (3.4-5.0); ALBUMIN/GLOBULIN RATIO 1.3 (1.0-1.7); TOTAL BILIRUBIN 0.7 mg/dL (0.2-1.0); TOTAL PROTEIN 6.7 g/dL (6.4-8.2)
[2021-09-12 10:09] LABS: POTASSIUM 5.1 mmol/L (3.5-5.1)
[2021-09-12 10:32] LABS: INFLUENZA A PATIENT NEGATIVE (NEGATIVE); INFLUENZA B PATIENT NEGATIVE (NEGATIVE)
[2021-09-12] MEDS ORDERED: IOHEXOL 300 MG/ML 75 ML VIAL. IV ONE (11:00)
[2021-09-12] MEDS ORDERED: CONTRAST GIVEN. MC PRN (11:15)
[2021-09-12 11:20] VITALS: BP 129/74
[2021-09-12] MEDS ORDERED: ONDA4TAB12 PO (11:46)
[2021-09-12] MEDS ORDERED: DICY10CA3 PO (11:46)
== END 2021-09-12 11:50 | disposition home or self-care (01) ==
LOC: ER 09:09
DX: R11.2 Nausea with vomiting, unspecified (principal); R19.7 Diarrhea, unspecified; R14.0 Abdominal distension (gaseous); I48.91 Unspecified atrial fibrillation; E78.00 Pure hypercholesterolemia, unspecified; I10 Essential (primary) hypertension; Z20.822 Contact with and (suspected) exposure to COVID-19
CPT/HCPCS: 36415; 80053; 83690; 85025; 87428; 96374; 96375; 99284; J2405; J3010; J7040